=== PATIENT | female | born 1940 | race Caucasian/White ===

== ENCOUNTER 2022-06-30 09:56 | Inpatient (IN) | payer MEDICARE, BC ==
[2022-06-30 10:52] LABS: ESTIMATED GFR 18 mL/min (>60)
[2022-06-30 11:21] LABS: CORONAVIRUS COVID-19 NAA POSITIVE (NEGATIVE)
[2022-06-30] MEDS ORDERED: Sodium Chloride 0.9% 10 ML Syringe FLUSH PRN (12:07)
[2022-06-30] MEDS ORDERED: Ondansetron 4 MG Tab.DIS PO PRN (12:37)
[2022-06-30] MEDS ORDERED: Acetaminophen 325 MG Tab PO PRN (12:37)
[2022-06-30] MEDS ORDERED: Morphine 2 MG/ML SYRINGE IVPUSH PRN ×2 (12:37→21:56)
[2022-06-30] MEDS ORDERED: LORazepam 2 MG/ML SDV IVPUSH PRN ×2 (12:38→21:55)
[2022-06-30] MEDS ORDERED: Dextrose 5%-0.45% NaCl 1,000 ML IV SCH (12:45)
== END 2022-07-01 01:30 | disposition expired | DRG 951 ==
LOC: JD.ED 09:56 → JD.MS 12:07
PROVIDERS: ADMIT Hospitalist; ATTEND Hospitalist
DX: Z51.5 Encounter for palliative care (principal); G93.40 Encephalopathy, unspecified; U07.1 COVID-19; G92.9 Unspecified toxic encephalopathy; I21.A1 Myocardial infarction type 2; G93.6 Cerebral edema; C91.90 Lymphoid leukemia, unspecified not having achieved remission; N17.9 Acute kidney failure, unspecified; Z66 Do not resuscitate; R09.02 Hypoxemia; I11.0 Hypertensive heart disease with heart failure; I50.9 Heart failure, unspecified; E11.9 Type 2 diabetes mellitus without complications; E03.9 Hypothyroidism, unspecified; D49.6 Neoplasm of unspecified behavior of brain; Z79.82 Long term (current) use of aspirin; Z79.890 Hormone replacement therapy; Z79.899 Other long term (current) drug therapy
CPT/HCPCS: 0240U; 36415; 36600; 70450; 70450-26; 71045; 71045-26; 80053; 82803; 82947; 83605; 83880; 84484; 85025; 85379; 85610; 85730; 87040; 93005; 99285; J2060; J2270; J3490; J7042